=== PATIENT | female | born 1990 | race Caucasian/White ===

== ENCOUNTER 2023-08-21 07:57 | Inpatient (IN) | payer OTHER ==
[~2023-08-21] VITALS: Ht 175.3 cm; Wt 97.1 kg
[2023-08-21 08:51] LABS: HEMATOCRIT 35.8 % (35.0-50.0); HEMOGLOBIN 11.9 g/dL (12.0-18.0); MCH 28.8 (27-36); MCHC 33.1 g/dl (30-36); MCV 86.8 fl (81-99); RBC 4.13 M/ul (4.3-5.7)
[2023-08-21 08:56] VITALS: BP 133/89
[2023-08-21 09:05] LABS: CREATININE, RANDOM URINE 143.97 mg/dL (NOT ESTABLISHED); PROTEIN/CREATININE RATIO 0.18 mg/mg (0.010-0.107)
[2023-08-21 09:07] LABS: ALBUMIN/GLOBULIN RATIO 0.49 (1.1-2.4); ANION GAP 13.9 (7-21); BILIRUBIN, TOTAL 0.2 ng/dL (0.2-1.0); BUN/CREATININE RATIO 13.04 (6.0-28.6); CREATININE, SERUM 0.69 mg/dL (0.55-1.02); POTASSIUM 3.9 mmol/L (3.5-5.1); PROTEIN, TOTAL 6.1 g/dL (6.4-8.2)
[2023-08-21 09:20] LABS: AMPHETAMINES, URINE NEGATIVE (NEGATIVE); BARBITURATES, URINE NEGATIVE (NEGATIVE); BENZODIAZEPINE, URINE NEGATIVE (NEGATIVE); BUPRENORPHINE, URINE NEGATIVE (NEGATIVE); CANNABINOID, URINE NEGATIVE (NEGATIVE); COCAINE, URINE NEGATIVE (NEGATIVE); ECSTASY, URINE NEGATIVE (NEGATIVE); FENTANYL, URINE NEGATIVE (NEGATIVE); METHADONE, URINE NEGATIVE (NEGATIVE); OPIATES, URINE NEGATIVE (NEGATIVE); OXYCODONE, URINE NEGATIVE (NEGATIVE); PHENCYCLIDINE, URINE NEGATIVE (NEGATIVE)
[2023-08-21 09:27] LABS: ABO O; ANTIBODY SCREEN NEGATIVE; RH POSITIVE
--- NOTE | 2023-08-21 11:59 | PR ---
[facility] [address], [place] [address] Signed Progress Notes IP Datetime Report Generated by CPN: 08/21/2023 11:59 PROGRESS NOTES: [id number] Impression: Reassuring Heart Rate Procedures: Artificial ROM; Sterile Vag Exam Plan: Continue Present Management; Anticipate Vaginal Delivery Informed Consent Obtain: Vaginal Delivery VITAL SIGNS: [id number] Vital Signs: Reviewed; Within Normal Limits EXAM: [id number] Dilatation: 3.0 Effacement: 60 Station: -3 Contractions: Rare MEMBRANES: [id number] Comments: Pt seen and examined. Doing well. One severe range BP after ambulation that resolved on recheck. Denies symptoms. Dicussed AROM. Pt desires and AROM easily performed for moderate amount clear fluid. Reviewed anticipated course of labor / delivery. All questions answered. FETUS A: [id number] FHR Baseline: 145 Variability: Moderate 6-25bpm Accelerations: 15X15 Decelerations: None FHR Category: Category I Presentation: Vertex Comments on Fetus A: No evidence of metabolic acidosis FETUS B: [id number] Signing Physician: True Scott DO Copies: ~ *Electronically Signed* 08/21/23 1150 TRUE SCOTT (RAZ) DO PATIENT NAME: LARON SCOTT YAAISRARAGHU PROGRESS NOTE DATE OF : 90 PHYSICIAN: TRUE SCOTTRAZ) DO RPT #: [id number] REPORT IS CONFIDENTIAL AND NOT TO BE RELEASED WITHOUT AUTHORIZATION
[2023-08-21 15:20] VITALS: BP 172/97
--- NOTE | 2023-08-21 16:15 | PR ---
[facility] [address] [place], [place] [address] Signed Progress Notes IP Datetime Report Generated by CPTrinity: 08/21/2023 16:15 PROGRESS NOTES: [id number] Impression: Normal Progression of Labor; Reassuring Heart Rate Procedures: Sterile Vag Exam Plan: Continue Present Management Other Plans: Reviewed Mag sulfate and treatment of severe preE Informed Consent Obtain: Vaginal Delivery VITAL SIGNS: [id number] Vital Signs: Reviewed; Within Normal Limits EXAM: [id number] Dilatation: 4.0 Effacement: 75 Station: -2 Contractions: q 2 min MEMBRANES: [id number] Comments: Pt seen and examined. Sustained elevated BPs. No ELIZABETH, RUQ pain, or visual changes. Per [employer] guidelines, started Magnesium and treated BPs w/ labetalol per protocol. Pt doing well. Some hypotension following epidural that improved w/ ephedrine. Will closely monitor. FETUS A: [id number] FHR Baseline: 145 Variability: 140 Accelerations: 15X15 Decelerations: Variable FHR Category: Category II Presentation: Vertex Comments on Fetus A: No evidence of metabolic acidosis FETUS B: [id number] Signing Physician: True Scott DO Copies: ~ *Electronically Signed* 08/21/23 4715 TRUE SCOTT (RAZ) DO PATIENT NAME: LARON SCOTT YAAJAMESSEGUN PROGRESS NOTE DATE OF : 90 PHYSICIAN: TRUE SCOTT) DO RPT #: [id number] REPORT IS CONFIDENTIAL AND NOT TO BE RELEASED WITHOUT AUTHORIZATION
--- NOTE | 2023-08-21 17:51 | PR ---
[facility] [address] [place], [place] [address] Signed Progress Notes IP Datetime Report Generated by PAVITHRA: 08/21/2023 17:51 PROGRESS NOTES: [id number] Impression: Normal Progression of Labor; Reassuring Heart Rate Procedures: Intrauterine Pressure Catheter; Scalp Electrode; Sterile Vag Exam Plan: Continue Present Management; Anticipate Vaginal Delivery Other Plans: Reviewed Mag sulfate and treatment of severe preE Informed Consent Obtain: Vaginal Delivery; Risks, Benefits and Alternatives Discussed VITAL SIGNS: [id number] Vital Signs: Reviewed; Within Normal Limits EXAM: [id number] Dilatation: 6.0 Effacement: 75 Station: -2 Contractions: q 2-3 min MEMBRANES: [id number] Comments: Pt seen and examined. Doing well. Comfortable w/ contractions. BPs improved and FHT reassuring. Some difficulty in keep fetus on the monitor and pt not feeling contractions. Recommended IUPC / FSE. Pt understands and agrees. Internals easily placed. Will monitor. Anticipate soon FETUS A: [id number] FHR Baseline: 145 Variability: 140 Accelerations: 15X15 Decelerations: Variable FHR Category: Category II Presentation: Vertex Comments on Fetus A: No evidence of metabolic acidosis FETUS B: [id number] Signing Physician: True Scott DO Copies: ~ *Electronically Signed* 08/21/23 9329 TRUE SCOTT (RAZ) DO PATIENT NAME: SCOTTLARON DE LEÓN PROGRESS NOTE DATE OF : 90 PHYSICIAN: TRUE SCOTT (JD) DO RPT #: [id number] REPORT IS CONFIDENTIAL AND NOT TO BE RELEASED WITHOUT AUTHORIZATION
--- NOTE | 2023-08-21 18:39 | PR ---
[facility] [address] [facility] [place], [place] [address] Signed Progress Notes IP Datetime Report Generated by CPN: 08/21/2023 18:39 PROGRESS NOTES: [id number] Impression: Normal Progression of Labor; Reassuring Heart Rate Procedures: Sterile Vag Exam Plan: Anticipate Vaginal Delivery Other Plans: Reviewed Mag sulfate and treatment of severe preE Informed Consent Obtain: Vaginal Delivery VITAL SIGNS: [id number] Vital Signs: Reviewed; Within Normal Limits EXAM: [id number] Dilatation: 10.0 Effacement: 90 Station: -2 Contractions: q 2-3 min MEMBRANES: [id number] Comments: Pt seen and examined. Comfortable. Complete +1 station. Will prepare for FETUS A: [id number] FHR Baseline: 145 Variability: Minimal - >Undetectable to <=5bpm Accelerations: 15X15 Decelerations: Variable FHR Category: Category II Presentation: Vertex Comments on Fetus A: No evidence of metabolic acidosis FETUS B: [id number] Signing Physician: True Scott DO Copies: ~ *Electronically Signed* 08/21/23 3530 TRUE SCOTT (RAZ) DO PATIENT NAME: LARON SCOTT PROGRESS NOTE DATE OF : 90 PHYSICIAN: TRUE SCOTT (RAZ) DO RPT #: [id number] REPORT IS CONFIDENTIAL AND NOT TO BE RELEASED WITHOUT AUTHORIZATION
[2023-08-22 05:49] LABS: HEMATOCRIT 35.5 % (35.0-50.0); HEMOGLOBIN 11.6 g/dL (12.0-18.0); MCH 28.4 (27-36); MCHC 32.7 g/dl (30-36); MCV 86.7 fl (81-99); RBC 4.09 M/ul (4.3-5.7); RDW 13.1 (10.5-15.0)
--- NOTE | 2023-08-22 18:02 | PR ---
[facility] [address] [facility] [place], [place] [address] Signed PP Progress Notes Datetime Report Generated by CPN: 08/22/2023 18:02 SUBJECTIVE: [id number] Pain: Within Normal Limits Nausea/Vomiting: Denies Flatus: Yes Bowel Movement: No Vital Signs: [id number] Vital Signs: Reviewed; Within Normal Limits Cardiovascular: Normal Respiratory: Normal Abdomen/Uterus: Normal Lochia: Normal Vulva/Perineum: Not Done Breasts: Not Done CVA Tenderness: Normal Extremities: Normal Incision: Not Applicable Progress: Normal Exam Comments: Fundus firm U-2 nontender IMPRESSION/PLAN/PROCEDURES: [id number] Impression: Normal Progression Plan: Continue Present Management Other Plans: ok to d/c mag Progress Notes: Pt seen and examined. Doing well. No ELIZABETH, RUQ pain, or visual changes. Good urine output. No elevated BPs. Discussed mag sulfate and will d/c. Anticipate d/c home tomorrow. well. Lochia minimal. No other concerns. Signing Physician: True Scott DO Copies: ~ *Electronically Signed* 08/22/23 5943 TRUE SCOTT (RAZ) DO PATIENT NAME: LARON SCOTT PROGRESS NOTE DATE OF : 90 PHYSICIAN: TRUE SCOTT) DO RPT #: [id number] REPORT IS CONFIDENTIAL AND NOT TO BE RELEASED WITHOUT AUTHORIZATION
--- NOTE | 2023-08-23 07:58 | PR ---
[facility] [address] [place], [place] [address] Signed PP Progress Notes Datetime Report Generated by CPN: 08/23/2023 07:58 SUBJECTIVE: [id number] Pain: Within Normal Limits Nausea/Vomiting: Denies Flatus: Yes Bowel Movement: No Vital Signs: [id number] Vital Signs: Reviewed; Within Normal Limits Cardiovascular: Normal Respiratory: Normal Abdomen/Uterus: Normal Lochia: Normal Vulva/Perineum: Not Done Breasts: Not Done CVA Tenderness: Normal Extremities: Normal Incision: Not Applicable Progress: Normal Exam Comments: Fundus firm U-2 nontender IMPRESSION/PLAN/PROCEDURES: [id number] Impression: Normal Progression Plan: Discharge Other Plans: ok to d/c mag Progress Notes: Pt seen and examined. Doing well. Ambulating, voiding, and tolerating full diet. Pain and lochia minimal. well. No fevers/chills or other concerns. No ELIZABETH, RUQ pain, or visual changes. Reviewed BPs; antihypertensive treatment not indicated at this time but will reevaluate at 48 hr post discharge BP check. Reviewed s/sx pp PreE. All questions answered to the best of my ability and to pt's apparent satisfaction Signing Physician: True Scott DO Copies: ~ *Electronically Signed* 08/23/23 0758 TRUE SCOTT (RAZ) DO PATIENT NAME: SCOTTLARON DE LEÓN PROGRESS NOTE DATE OF : 90 PHYSICIAN: TRUE SCOTT (JD) DO RPT #: [id number] REPORT IS CONFIDENTIAL AND NOT TO BE RELEASED WITHOUT AUTHORIZATION
== END 2023-08-23 11:55 | disposition home or self-care (01) | DRG 807 ==
LOC: FBC 07:57
PROVIDERS: ADMIT Obstetrics & Gynecology; ATTEND Obstetrics & Gynecology
PROC: 10E0XZZ Delivery of Products of Conception, External Approach (ICD-10-PCS; principal; 2023-08-21)
PROC: 0KQM0ZZ Repair Perineum Muscle, Open Approach (ICD-10-PCS; 2023-08-21)
PROC: 10H07YZ Insertion of Other Device into Products of Conception, Via Natural or Artificial Opening (ICD-10-PCS; 2023-08-21)
PROC: 3E0R3BZ Introduction of Anesthetic Agent into Spinal Canal, Percutaneous Approach (ICD-10-PCS; 2023-08-21)
PROC: 00HU33Z Insertion of Infusion Device into Spinal Canal, Percutaneous Approach (ICD-10-PCS; 2023-08-21)
PROC: 10907ZC Drainage of Amniotic Fluid, Therapeutic from Products of Conception, Via Natural or Artificial Opening (ICD-10-PCS; 2023-08-21)
DX: O14.14 Severe pre-eclampsia complicating childbirth (principal); Z37.0 Single live birth; Z3A.38 38 weeks gestation of pregnancy; O76 Abnormality in fetal heart rate and rhythm complicating labor and delivery; O13.4 Gestational [pregnancy-induced] hypertension without significant proteinuria, complicating childbirth; O70.1 Second degree perineal laceration during delivery; O69.1XX0 Labor and delivery complicated by cord around neck, with compression, not applicable or unspecified; O99.214 Obesity complicating childbirth; O99.892 Other specified diseases and conditions complicating childbirth; M41.9 Scoliosis, unspecified
CPT/HCPCS: 36415; 80053; 80307; 82565; 82570; 83615; 83735; 84156; 84550; 85027; 86850; 86900; 86901; A9270; J2405; J2590; J3010; J3475; J7121